=== PATIENT | male | born 1975 ===

== ENCOUNTER 2022-01-17 10:45 | Day surgery (SDC) | payer BC ==
[2022-01-14 15:02] LABS: Absolute Lymphocytes (CBC) 1.8 K/uL (0.7-4.9); Hematocrit 45.5 % (39.6-49.0); Lymphocytes % 26.7 % (15.3-44.8); MPV 6.8 fL (7.6-11.3); RBC Red Blood Cell Count 5.32 M/uL (4.33-5.43)
[2022-01-14 15:09] LABS: Protime INR 1.02
[2022-01-14 15:25] LABS: Potassium 4.4 mmol/L (3.5-5.1)
--- NOTE | 2022-01-14 16:11 | RAD REPORT ---
EXAM DESCRIPTION: Lynda Pa And Lat (2 Views)01/14/2022 3:07 pm CLINICAL HISTORY: Preop for cardiac catheterization COMPARISON: None FINDINGS: Prominent kyphosis . The lungs appear clear of acute infiltrate. The heart is normal size IMPRESSION: No acute abnormalities displayed
[~2022-01-17 10:45] MED LIST: NA CHLORIDE 0.9% 500 ML ONE
[2022-01-17] MEDS ORDERED: HEPA 1000U/500MLS 2,000 UNIT/1,000 ML BAG IV ONE (10:55)
[2022-01-17] MEDS ORDERED: MIDAZOLAM HCL 2 MG/2 ML INJ ONE (12:01)
[2022-01-17] MEDS ORDERED: CLOPIDOGREL 75 MG TABLET ONE (12:01)
[2022-01-17] MEDS ORDERED: FENTANYL CITR 100 MCG/2 ML ONE (12:01)
[2022-01-17] MEDS ORDERED: VERAPAMIL HCL 10 MG/4 ML VIAL IV ONE (12:01)
[2022-01-17] MEDS ORDERED: ATROPINE SULF 1 MG/10 ML SYR IV ONE (12:02)
[2022-01-17] MEDS ORDERED: ASPIRIN 325 MG TAB ONE (12:02)
[2022-01-17] MEDS ORDERED: HEPARIN 5000 UNIT/ML 1 ML VIAL ONE (12:02)
[2022-01-17] MEDS ORDERED: NITROGLYCERIN 100 MCG/ML SYR (for cath lab use only) IV ONE (12:02)
[2022-01-17] MEDS ORDERED: TICAGRELOR 90 MG TABLET PO ONE (12:02)
[2022-01-17] MEDS ORDERED: NITROGLYCERIN/D5W 25 MG/250 ML BTL IV ONE (12:02)
[2022-01-17 14:31] VITALS: O2SAT 98
[2022-01-17 15:19] VITALS: BP 114/68
--- NOTE | 2022-01-18 00:02 | OP ---
Date of Procedure: 01/17/2022 Surgeon: RAZIA SARMIENTO Procedures Performed: 1.Selective coronary angiogram. 2.Left heart catheterization. 3.Left ventriculogram. Indications: Low ejection fraction with wall motion abnormalities on echo. Access: Right radial artery 6-Frisian closed with TR band. Complications: None. Bleeding: Less than 10 mL. Sedation: None. Description Of Procedure: After risks, benefits, alternatives were explained, the patient agreed to proceed and signed informed consent. The patient was brought into the cardiac catheterization labora tory, prepped and draped in usual sterile fashion. Access to the right radial artery using pediatric micropuncture kit. We took a 5-Frisian [place] 4.0 catheter into the aortic root over a J-wire, engage d left main, right coronary artery, took standard views and then I took an angled pigtail into the ao rtic root and advanced it to the LV and measured the LVEDP and LV-gram was done. Pullback did not re cord any gradient. I removed the catheter and sheath, placed TR band with good hemostasis. Findings: 1.Left main is very large and normal. 2.Left anterior descending artery very large vessel, normal. Normal diagonal branches. 3.Left circumflex, very large and dominant and supplies the inferior wall and it is normal. 4.RCA; small, nondominant and normal. 5.LVEDP is normal at 9 mmHg. 6.Low-normal LVEF at 50% with no obvious regional wall motion abnormality. Conclusion: 1.Normal coronary arteries. 2.Normal LVEDP. 3.Low-normal LVEF at 50%. Plan: Medical management. /[place] Voice ID: [id number] Report ID: [id number]
== END 2022-01-17 15:21 | disposition home or self-care (01) ==
LOC: CCL 10:45
PROVIDERS: ATTEND Internal Medicine
DX: R07.9 Chest pain, unspecified (principal); I10 Essential (primary) hypertension; I51.7 Cardiomegaly; Z20.822 Contact with and (suspected) exposure to COVID-19
CPT/HCPCS: 93005; 85025; 80048; 36415; 85610; 85730; 71046; 93458; U0003; C1893; J1644 ×2; J7040; J2250; J3010